=== PATIENT | female | born 1995 | race Caucasian/White ===

== ENCOUNTER 2019-03-20 22:08 | Emergency (ER) | payer OTHER ==
[~2019-03-20] VITALS: Ht 162.6 cm; Wt 78.8 kg
[~2019-03-20 22:08] MED LIST: IBUP800T48 PO
[2019-03-20 22:16] VITALS: Ht 162.6 cm; Wt 78.8 kg
[2019-03-20] MEDS ORDERED: IBUPROFEN 800 MG TAB PO ONE (23:00)
[2019-03-21 00:27] VITALS: BP 124/76; PULSE 74; RESP 17
== END 2019-03-21 00:27 | disposition home or self-care (01) ==
LOC: FTE 22:08
DX: N64.4 Mastodynia (principal)
CPT/HCPCS: 71046; Z7610